=== PATIENT | male | born 1945 | race Caucasian/White ===

== ENCOUNTER 2021-05-18 21:29 | Emergency (ER) | payer MEDICARE, OTHER ==
[2021-05-18] MEDS ORDERED: Sodium Chloride 0.9% 10 ML Syringe FLUSH PRN (21:31)
[2021-05-18 22:41] LABS: CORONAVIRUS COVID-19 NAA NEGATIVE (NEGATIVE)
[2021-05-18] MEDS ORDERED: Sodium Chloride 0.9% 1,000 ML IV SCH (22:45)
[2021-05-18] MEDS ORDERED: Acetaminophen 325 MG Tab PO ONE (22:59)
[2021-05-18] MEDS ORDERED: Albuterol/Ipratropium 3.0-0.5 MG/3 ML Neb Soln NEB ONE (23:01)
[2021-05-18] MEDS ORDERED: LORazepam 2 MG/ML SDV IVPUSH ONE (23:08)
[2021-05-18] MEDS ORDERED: LORazepam 2 MG/ML SDV ONE (23:09)
[2021-05-18] MEDS ORDERED: cefTRIAXone 1 GM in Sodium Chloride 0.9% 50 ML IV ONE (23:09)
[2021-05-18] MEDS ORDERED: Acetaminophen 1,000 MG in Premix Bag 1 BAG IV ONE (23:15)
[2021-05-18] MEDS ORDERED: Diltiazem 100 MG in Sodium Chloride 0.9% 100 ML IV SCH (23:30)
[2021-05-18] MEDS ORDERED: Morphine 4 MG/ML Syringe IVPUSH ONE (23:44)
[2021-05-18] MEDS ORDERED: Heparin Sodium/D5W 25,000 UNITS/500 ML BAG IV SCH (23:45)
[2021-05-18] MEDS ORDERED: Nitroglycerin/D5W 25 MG/250 ML BOTTLE IV SCH (23:45)
[2021-05-18] MEDS ORDERED: Morphine 4 MG/ML Syringe ONE (23:45)
[2021-05-18] MEDS ORDERED: Heparin Sodium 5,000 Units/ML Vial IVPUSH ONE (23:50)
[2021-05-18] MEDS ORDERED: Nitroglycerin/D5W 25 MG/250 ML BOTTLE ONE (23:51)
[2021-05-18] MEDS ORDERED: Heparin Sodium 5,000 Units/ML Vial ONE (23:51)
[2021-05-18] MEDS ORDERED: Furosemide 40 MG/4 ML VIAL IVPUSH ONE (23:56)
[2021-05-19] MEDS ORDERED: Etomidate 2 MG/ML 10 ML SDV IVPUSH ONE (00:01)
[2021-05-19] MEDS ORDERED: Rocuronium 50 MG/5 ML Vial IV ONE (00:01)
[2021-05-19] MEDS ORDERED: Rocuronium 50 MG/5 ML Vial ONE ×2 (00:02→00:03)
[2021-05-19] MEDS ORDERED: propofoL 100 ML ONE (00:11)
[2021-05-19] MEDS ORDERED: propofoL 100 ML IV SCH (00:15)
[2021-05-19] MEDS: Amiodarone 150 MG/3 ML SDV ONE ×2 (00:40→07:15)
[2021-05-19] MEDS ORDERED: Amiodarone 150 MG/3 ML SDV IVPUSH ONE (00:40)
== END 2021-05-19 01:37 ==
LOC: JP.ED 21:29
DX: A41.9 Sepsis, unspecified organism (principal); I21.4 Non-ST elevation (NSTEMI) myocardial infarction; J96.01 Acute respiratory failure with hypoxia; Z79.82 Long term (current) use of aspirin; Z20.822 Contact with and (suspected) exposure to COVID-19
CPT/HCPCS: 0241U; 31500; 36415; 36600; 71045; 71045-26; 80053; 81001; 82803; 83605; 83690; 84484; 85025; 87040; 87086; 93005; 94640; 96365; 96366; 96367; 96368; 96375; 96376; 99284; 99285-25; J0131; J0282; J0696; J1644; J1940; J2060; J2270; J2704; J3490; J7060; J7620